=== PATIENT | female | born 1970 | race Caucasian/White ===

== ENCOUNTER 2018-06-06 17:32 | Emergency (ER) | payer BC ==
--- NOTE | 2018-06-06 17:56 | EDM.PDOC ---
ED HPI GENERAL MEDICAL PROBLEM - General Chief Complaint: Abdominal Pain Stated Complaint: ABDONMENAL PAIN Time Seen by Provider: 06/06/18 18:15 Source of Information: Reports: Patient History Limitations: Reports: No Limitations - History of Present Illness INITIAL COMMENTS - FREE TEXT/NARRATIVE: History of present illness: []Patient developed severe right flank pain looking at [employer] today. He decided to leave work and drink 2 glasses of water and her pain subsided. Pain has not returned. Patient states that is when she urinates. Denies any fevers, chills, nausea, vomiting or diarrhea. Review of systems: As per history of present illness and below otherwise all systems reviewed and negative. Past medical history: As per history of present illness and as reviewed below otherwise noncontributory. Surgical history: As per history of present illness and as reviewed below otherwise noncontributory. Social history: No reported history of drug or alcohol abuse. Family history: As per history of present illness and as reviewed below otherwise noncontributory. Physical exam: General: Well developed, well nourished in NAD HEENT: Atraumatic, normocephalic, pupils reactive, negative for conjunctival pallor or scleral icterus, mucous membranes moist, throat clear, neck supple, nontender, trachea midline. Lungs: Clear to auscultation, breath sounds equal bilaterally, chest nontender. Heart: S1S2, regular, negative for clicks, rubs, or JVD. Abdomen: NABS, Soft, nondistended, nontender. Negative for masses or hepatosplenomegaly. Positive right costovertebral tenderness. Pelvis: Stable nontender. Genitourinary: Deferred. Rectal: Deferred. Extremities: Atraumatic, negative for cords or calf pain. Neurovascular unremarkable. Neuro: Awake, alert, oriented. Cranial nerves II through XII unremarkable. Cerebellum unremarkable. Motor and sensory unremarkable throughout. Exam nonfocal. Skin:warm and dry Diagnostics: CBC-normal, chemistry normal BUN and creatinine, UA, hCG, lipase Therapeutics: Declined pain meds, patient has blood in her urine suggestive of a stone given her symptoms she declined CT scan and with a normal BUN/creatinine and alleviation of pain, she will follow-up with primary care and our urology ED Course: Stable Impression: Renal colic, kidney stone Prescriptions: Flomax, tramadol Plan: Increase fluids, go home Definitive disposition and diagnosis as appropriate pending reevaluation and review of above. Right Back Pain Score (Numeric/FACES): 4 - Related Data Allergies Allergy/AdvReac Type Severity Reaction Status Date / Time No Known Allergies Allergy Verified 06/06/18 17:54 Home Meds: Home Meds Tamsulosin HCl [Flomax] 0.4 mg PO DAILY #14 cap.er.24h 06/06/18 [Rx] traMADol HCl [Tramadol HCl] 50 mg PO Q6H PRN #16 tablet 06/06/18 [Rx] ED ROS GENERAL - Review of Systems Review Of Systems: ROS reveals no pertinent complaints other than HPI. ED EXAM, GI/ABD - Physical Exam Exam: See Below (The history of present illness) Course - Vital Signs Last Recorded V/S: Last Vital Signs Temp 97.1 F 06/06/18 17:52 Pulse 85 06/06/18 17:52 Resp BP 115/79 06/06/18 17:52 Pulse Ox 99 06/06/18 17:52 - Orders/Labs/Meds Labs: Laboratory Tests 06/06/18 06/06/18 06/06/18 Range/Units 17:57 18:09 18:09 WBC 8.70 (4.0-11.0) K/uL RBC 4.55 (4.30-5.90) M/uL Hgb 13.5 (12.0-16.0) g/dL Hct 40.6 (36.0-46.0) % MCV 89.2 (80.0-98.0) fL MCH 29.7 (27.0-32.0) pg MCHC 33.3 (31.0-37.0) g/dL RDW Std Deviation 43.9 (28.0-62.0) fl RDW Coeff of Kyle 14 (11.0-15.0) % Plt Count 247 (150-400) K/uL MPV 10.30 (7.40-12.00) fL Neut % (Auto) 63.8 (48.0-80.0) % Lymph % (Auto) 27.8 (16.0-40.0) % [place] % (Auto) 6.7 (0.0-15.0) % Eos % (Auto) 1.4 (0.0-7.0) % Baso % (Auto) 0.3 (0.0-1.5) % Neut # (Auto) 5.6 (1.4-5.7) K/uL Lymph # (Auto) 2.4 (0.6-2.4) K/uL [place] # (Auto) 0.6 (0.0-0.8) K/uL Eos # (Auto) 0.1 (0.0-0.7) K/uL Baso # (Auto) 0.0 (0.0-0.1) K/uL Nucleated RBC % 0.0 /100WBC Nucleated RBCs # 0 K/uL Sodium 141 (136-145) mmol/L Potassium 4.1 (3.5-5.1) mmol/L Chloride 107 (98-107) mmol/L Carbon Dioxide 26.5 (21.0-32.0) mmol/L BUN 17 (7.0-18.0) mg/dL Creatinine 0.6 (0.6-1.0) mg/dL Est Cr Clr Drug Dosing 94.85 mL/min Estimated GFR (MDRD) > 60.0 ml/min Glucose 103 (74-106) mg/dL Calcium 8.8 (8.5-10.1) mg/dL Total Bilirubin 0.2 (0.2-1.0) mg/dL AST 16 (15-37) IU/L ALT 31 (14-63) IU/L Alkaline Phosphatase 75 (46-116) U/L Total Protein 7.0 (6.4-8.2) g/dL Albumin 3.7 (3.4-5.0) g/dL Globulin 3.3 (2.6-4.0) g/dL Albumin/Globulin Ratio 1.1 (0.9-1.6) Lipase 104 (73-393) U/L HCG, Quant < 1.0 mIU/mL Urine Color YELLOW Urine Appearance CLEAR Urine pH 5.5 (5.0-8.0) Ur Specific [place] >= 1.030 (1.001-1.035) Urine Protein NEGATIVE (NEGATIVE) mg/dL Urine Glucose (UA) NEGATIVE (NEGATIVE) mg/dL Urine Ketones NEGATIVE (NEGATIVE) mg/dL Urine Occult Blood LARGE H (NEGATIVE) Urine Nitrite NEGATIVE (NEGATIVE) Urine Bilirubin NEGATIVE (NEGATIVE) Urine Urobilinogen 0.2 (<2.0) EU/dL Ur Leukocyte Esterase NEGATIVE (NEGATIVE) Urine RBC 30-35 (0-2/HPF) Urine WBC 0-2 (0-5/HPF) Ur Epithelial Cells MODERATE (NONE-FEW) Other Crystals FEW Urine Mucus MODERATE (NONE-MOD) Departure - Departure Time of Disposition: 19:27 Disposition: Home, Self-Care 01 Condition: Good Clinical Impression: Renal colic on right side - Discharge Information *PRESCRIPTION DRUG MONITORING PROGRAM REVIEWED*: No *COPY OF PRESCRIPTION DRUG MONITORING REPORT IN PATIENT CHRISTIE: No () Referrals: PCP,None [Primary Care Provider] - Forms: ED Department Discharge Additional Instructions: The following information is given to patients seen in the emergency department who are being discharged to home. This information is to outline your options for follow-up care. We provide all patients seen in our emergency department with a follow-up referral. The need for follow-up, as well as the timing and circumstances, are variable depending upon the specifics of your emergency department visit. If you don't have a primary care physician on staff, we will provide you with a referral. We always advise you to contact your personal physician following an emergency department visit to inform them of the circumstance of the visit and for follow-up with them and/or the need for any referrals to a consulting specialist. The emergency department will also refer you to a specialist when appropriate. This referral assures that you have the opportunity for follow-up care with a specialist. All of these measure are taken in an effort to provide you with optimal care, which includes your follow-up. Under all circumstances we always encourage you to contact your private physician who remains a resource for coordinating your care. When calling for follow-up care, please make the office aware that this follow-up is from your recent emergency room visit. If for any reason you are refused follow-up, please contact the [facility] Emergency Department at and asked to speak to the emergency department charge nurse. Take meds as directed, follow up with your primary care physician, return to ER if symptoms worsen or change. [facility] [address] [place] [id number]
[2018-06-06 18:50] LABS: CHLORIDE,CL 107 mmol/L (98-107); SODIUM,NA 141 mmol/L (136-145)
[2018-06-06] MEDS ORDERED: Tamsulosin 0.4 MG Cap.ER PO ONE (19:27)
== END 2018-06-06 19:50 | disposition home or self-care (01) ==
LOC: MW.ED 17:32
DX: N20.0 Calculus of kidney (principal)
CPT/HCPCS: 36415; 80053; 81001; 83690; 84702; 85025; 99284; A9270

== ENCOUNTER 2019-01-14 13:59 | Emergency (ER) | payer BC, OTHER ==
[2019-01-14] MEDS ORDERED: Ondansetron 4 MG/2 ML SDV IVPUSH ONE (14:03)
[2019-01-14] MEDS ORDERED: Sodium Chloride 0.9% 1,000 ML IV ONE ×2 (14:03→16:16)
--- NOTE | 2019-01-14 14:03 | EDM.PDOC ---
ED HPI GENERAL MEDICAL PROBLEM - General Chief Complaint: Abdominal Pain Stated Complaint: RIGHT ABD PAIN Time Seen by Provider: 01/14/19 14:02 Source of Information: Reports: Patient History Limitations: Reports: No Limitations - History of Present Illness INITIAL COMMENTS - FREE TEXT/NARRATIVE: HISTORY AND PHYSICAL: History of present illness: Patient is a 48-year-old female who presents to the emergency room today with complaints of right lower quadrant pain which started last evening but this progressively gotten worse. She states she has previously had a kidney stone this last summer, does not recall which side, but states she passed this on her own. She believes the pain is not similar to what she is experiencing now. Nothing is making the pain better or worse. Patient denies any fever, chills, headache, change in vision, syncope or near syncope. Denies any chest pain, back pain, shortness of breath or cough. Denies any nausea, vomiting, diarrhea, constipation or dysuria. Has not noted any blood in urine or stool. Patient has been eating and drinking appropriately. Review of systems: As per history of present illness and below otherwise all systems reviewed and negative. Past medical history: As per history of present illness and as reviewed below otherwise noncontributory. Surgical history: As per history of present illness and as reviewed below otherwise noncontributory. Social history: See social history for further information Family history: As per history of present illness and as reviewed below otherwise noncontributory. Physical exam: General: Well-developed and well-nourished 48-year-old female. Alert and oriented. Nontoxic appearing and in no acute distress. HEENT: Atraumatic, normocephalic, pupils equal and reactive bilaterally, negative for conjunctival pallor or scleral icterus, mucous membranes moist, trachea midline. No drooling or trismus noted. No meningeal signs. No hot potato voice noted. Lungs: Clear to auscultation, breath sounds equal bilaterally, chest nontender. Heart: S1S2, regular rate and rhythm without overt murmur Abdomen: Soft, nondistended, RLQ pain without rebound tenderness. Negative for masses or hepatosplenomegaly. Negative for costovertebral tenderness. Pelvis: Stable nontender. Skin: Intact, warm, dry. No lesions or rashes noted. Extremities: Atraumatic, moves all extremities per self without difficulty or deficits, negative for cords or calf pain. Neurovascular unremarkable. Neuro: Awake, alert, oriented. Cranial nerves II through XII unremarkable. Cerebellum unremarkable. Motor and sensory unremarkable throughout. Exam nonfocal. Notes: Lab work is unremarkable. Patient has not yet been able to void. Appendix is not clearly seen however there is no inflammatory changes noted. Right hydronephrosis and right hydroureter with 5 mm proximal right ureteral calculi. Dr Parikh was directly involved with this patient care. Patient was informed of diagnostics. I currently do not have urology available. Initially I spoke with Dr. Atkins, at [facility], who is agreeable to a Consulting this patient if his urologist. Dr. Perez, urologist, was consulted and agreeable to accepting this patient. Patient is requesting to go by private vehicle, stating she does not want to afford the ambulance services. She is nontoxic in appearance, we discussed the risks versus benefits of transfer by ambulance service. She is aware of these risks and is accepting these risks. Diagnostics: CBC, CMP, UA, Lipase, CT abd/pelvis Therapeutics: IV fluids, morphine, zofran, toradol, flomax, rocephin Impression: Infected right renal caliculi Plan: 1. Increase your oral fluids. Take medications as prescribed. 2. Tylenol and/or ibuprofen as needed. [place] for moderate to severe pain. Do not take while driving or needing to be functioning outside the house. 3. Follow up with Dr Salazar as we discussed. Return to the ED as needed and as discussed. Definitive disposition and diagnosis as appropriate pending reevaluation and review of above. right lower back Pain Score (Numeric/FACES): 10 - Related Data Allergies Allergy/AdvReac Type Severity Reaction Status Date / Time No Known Allergies Allergy Verified 06/06/18 17:54 Home Meds: Home Meds . 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 ED EXAM, GI/ABD - Physical Exam Exam: See Below (See dictation) Course - Vital Signs Last Recorded V/S: Last Vital Signs Temp 96.5 F 01/14/19 14:35 Pulse 85 01/14/19 14:35 Resp 24 H 01/14/19 14:35 BP 128/87 01/14/19 14:35 Pulse Ox 100 01/14/19 14:35 - Orders/Labs/Meds Orders: Active Orders 24 hr Category Date Time Status cefTRIAXone [Rocephin in Dextrose,Iso-Osm 1 GM/50 ML] 1 Med 01/14/19 17:38 Active gm Premix Bag 1 bag IV ONETIME Medication Orders Ceftriaxone Sodium/Dextrose 1 (gm/ Premix) 50 mls @ 100 mls/hr IV ONETIME ONE Stop: 01/14/19 18:07 Labs: Laboratory Tests 01/14/19 01/14/19 01/14/19 Range/Units 14:40 14:40 17:03 WBC 9.94 (4.0-11.0) K/uL RBC 4.56 (4.30-5.90) M/uL Hgb 13.7 (12.0-16.0) g/dL Hct 40.0 (36.0-46.0) % MCV 87.7 (80.0-98.0) fL MCH 30.0 (27.0-32.0) pg MCHC 34.3 (31.0-37.0) g/dL RDW Std Deviation 42.1 (28.0-62.0) fl RDW Coeff of Kyle 13 (11.0-15.0) % Plt Count 267 (150-400) K/uL MPV 10.30 (7.40-12.00) fL Neut % (Auto) 50.8 (48.0-80.0) % Lymph % (Auto) 39.3 (16.0-40.0) % [place] % (Auto) 7.5 (0.0-15.0) % Eos % (Auto) 2.1 (0.0-7.0) % Baso % (Auto) 0.3 (0.0-1.5) % Neut # (Auto) 5.0 (1.4-5.7) K/uL Lymph # (Auto) 3.9 H (0.6-2.4) K/uL [place] # (Auto) 0.8 (0.0-0.8) K/uL Eos # (Auto) 0.2 (0.0-0.7) K/uL Baso # (Auto) 0.0 (0.0-0.1) K/uL Nucleated RBC % 0.0 /100WBC Nucleated RBCs # 0 K/uL Sodium 139 (136-145) mmol/L Potassium 3.7 (3.5-5.1) mmol/L Chloride 105 (98-107) mmol/L Carbon Dioxide 25.1 (21.0-32.0) mmol/L BUN 15 (7.0-18.0) mg/dL Creatinine 0.7 (0.6-1.0) mg/dL Est Cr Clr Drug Dosing TNP Estimated GFR (MDRD) > 60.0 ml/min Glucose 114 H (74-106) mg/dL Calcium 9.2 (8.5-10.1) mg/dL Total Bilirubin 0.3 (0.2-1.0) mg/dL AST 22 (15-37) IU/L ALT 35 (14-63) IU/L Alkaline Phosphatase 79 (46-116) U/L Total Protein 7.3 (6.4-8.2) g/dL Albumin 3.9 (3.4-5.0) g/dL Globulin 3.4 (2.6-4.0) g/dL Albumin/Globulin Ratio 1.1 (0.9-1.6) Urine Color BROWN Urine Appearance CLOUDY Urine pH 7.0 (5.0-8.0) Ur Specific [place] 1.020 (1.001-1.035) Urine Protein 100 H (NEGATIVE) mg/dL Urine Glucose (UA) NEGATIVE (NEGATIVE) mg/dL Urine Ketones TRACE H (NEGATIVE) mg/dL Urine Occult Blood LARGE H (NEGATIVE) Urine Nitrite NEGATIVE (NEGATIVE) Urine Bilirubin MODERATE H (NEGATIVE) Urine Urobilinogen 1.0 (<2.0) EU/dL Ur Leukocyte Esterase NEGATIVE (NEGATIVE) Urine RBC TOO NUMEROUS TO CT H (0-2/HPF) Urine WBC 3-5 (0-5/HPF) Ur Epithelial Cells FEW (NONE-FEW) Urine Bacteria 1+ H (NEGATIVE) Urine Mucus LIGHT (NONE-MOD) Meds: Medications Generic Name Dose Route Start Last Admin Trade Name Freq PRN Reason Stop Dose Admin Ceftriaxone Sodium/Dextrose 1 50 mls @ 100 mls/hr 01/14/19 17:38 gm/ Premix IV 01/14/19 18:07 ONETIME ONE Discontinued Medications Generic Name Dose Route Start Last Admin Trade Name Aris PRN Reason Stop Dose Admin Sodium Chloride 1,000 mls @ 999 mls/hr 01/14/19 14:03 01/14/19 14:45 Normal Saline IV 01/14/19 15:03 999 mls/hr STAT ONE Administration Sodium Chloride 1,000 mls @ 999 mls/hr 01/14/19 16:16 Normal Saline IV 01/14/19 17:16 STAT ONE Iopamidol 80 ml 01/14/19 15:49 01/14/19 15:50 Isovue Multipack-370 (76%) IVPUSH 01/14/19 15:50 80 ml ONETIME STA Administration Ketorolac Tromethamine 30 mg 01/14/19 15:53 01/14/19 15:58 Toradol IVPUSH 01/14/19 15:54 30 mg ONETIME ONE Administration Morphine Sulfate 4 mg 01/14/19 14:19 01/14/19 14:45 Morphine IVPUSH 01/14/19 14:20 4 mg ONETIME ONE Administration Ondansetron HCl 4 mg 01/14/19 14:03 01/14/19 14:45 Zofran IVPUSH 01/14/19 14:04 4 mg ONETIME ONE Administration Tamsulosin HCl 0.4 mg 01/14/19 17:38 Flomax PO 01/14/19 17:39 ONETIME ONE Departure - Departure Time of Disposition: 17:44 Disposition: DC/Tfer to [facility] 02 Clinical Impression: Renal calculus, right - Discharge Information Instructions: Kidney Stones, [id number] Referrals: PCP,None [Primary Care Provider] - Forms: ED Department Discharge Additional Instructions: The following information is given to patients seen in the emergency department who are being discharged to home. This information is to outline your options for follow-up care. We provide all patients seen in our emergency department with a follow-up referral. The need for follow-up, as well as the timing and circumstances, are variable depending upon the specifics of your emergency department visit. If you don't have a primary care physician on staff, we will provide you with a referral. We always advise you to contact your personal physician following an emergency department visit to inform them of the circumstance of the visit and for follow-up with them and/or the need for any referrals to a consulting specialist. The emergency department will also refer you to a specialist when appropriate. This referral assures that you have the opportunity for follow-up care with a specialist. All of these measure are taken in an effort to provide you with optimal care, which includes your follow-up. Under all circumstances we always encourage you to contact your private physician who remains a resource for coordinating your care. When calling for follow-up care, please make the office aware that this follow-up is from your recent emergency room visit. If for any reason you are refused follow-up, please contact the [facility] Emergency Department at and asked to speak to the emergency department charge nurse. [address] [facility] [address] 1. GO directly to [facility] in [place] 2. Do not eat or drink anything until you see the Urologist 3. Return to the ED as needed and as discussed. - My Orders Last 24 Hours: My Active Orders 01/14/19 17:38 cefTRIAXone [Rocephin in Dextrose,Iso-Osm 1 GM/50 ML] 1 gm Premix Bag 1 bag IV ONETIME - Assessment/Plan Last 24 Hours: My Active Orders 01/14/19 17:38 cefTRIAXone [Rocephin in Dextrose,Iso-Osm 1 GM/50 ML] 1 gm Premix Bag 1 bag IV ONETIME
[2019-01-14] MEDS ORDERED: Morphine 4 MG/ML Syringe IVPUSH ONE (14:19)
[2019-01-14 15:16] LABS: BLOOD UREA NITROGEN,BUN 15 mg/dL (7.0-18.0); CARBON DIOXIDE,CO2 25.1 mmol/L (21.0-32.0); CHLORIDE,CL 105 mmol/L (98-107); GLUCOSE RANDOM 114 mg/dL (74-106); POTASSIUM,K 3.7 mmol/L (3.5-5.1); SODIUM,NA 139 mmol/L (136-145)
[2019-01-14] MEDS ORDERED: Iopamidol 755 MG/ML 500 ML Multipack Bottle IVPUSH STA (15:49)
[2019-01-14] MEDS ORDERED: Ketorolac 30 MG/ML SDV IVPUSH ONE (15:53)
--- NOTE | 2019-01-14 16:05 | CT ---
Indication: Right lower quadrant pain. Technique: Multiple contiguous axial images were obtained from the lung bases through the symphysis pubis after the intravenous administration 80 milliliters Isovue 370. Please note that all CT scans at this facility use dose modulation, iterative reconstruction, and/or weight-based dosing when appropriate to reduce radiation dose to as low as reasonably achievable. Comparison: None Findings: Lung bases are clear. The heart is normal in size. The liver, gallbladder, spleen, pancreas, adrenals, and left kidney are grossly normal. Bilateral nonobstructing renal calculi are identified. Right hydronephrosis and right hydroureter identified. A proximal 5 millimeter right ureteral calculus is identified. This is best seen on image 66, series 201. In the pelvis, the urinary bladder is normal. The uterus is grossly normal. The small and large bowel are normal in caliber. Moderate amount of stool is identified within the colon. The appendix is not clearly seen. However, no inflammatory changes are identified in the right lower quadrant. No free air is identified. The aorta is normal in caliber. Impression: The appendix is not clearly seen however, no definite inflammatory changes are identified in the right lower quadrant. Right hydronephrosis and right hydroureter with a 5 millimeter proximal right ureteral calculus. Please note that all CT scans at this facility use dose modulation, iterative reconstruction, and/or weight-based dosing when appropriate to reduce radiation dose to as low as reasonably achievable. Dictated by Eboni Mejia MD @ Jan 14 2019 3:56PM Signed by Dr. Eboni Mejia @ Jan 14 2019 4:03PM
[2019-01-14] MEDS ORDERED: cefTRIAXone 1 GM in Premix Bag 1 BAG IV ONE (17:38)
[2019-01-14] MEDS ORDERED: Tamsulosin 0.4 MG Cap.ER PO ONE (17:38)
[2019-01-14] MEDS ORDERED: Morphine 2 MG/ML Syringe IVPUSH ONE (17:46)
== END 2019-01-14 18:47 ==
LOC: MW.ED 13:59
DX: N13.6 Pyonephrosis (principal)
CPT/HCPCS: 36415; 74177; 80053; 81001; 85025; 96361; 96365; 96375; 96376; 99285; A9270; J0696; J1885; J2270; J2405; J7040; Q9967; 99284; J7030

== ENCOUNTER 2019-03-25 16:19 | Emergency (ER) | payer SELFPAY | END 2019-03-25 16:50 | disposition left against medical advice (07) | LOC: MW.ED 16:19 | DX: Z53.21 Procedure and treatment not carried out due to patient leaving prior to being seen by health care provider (principal) ==

== ENCOUNTER 2019-10-19 11:57 | Emergency (ER) | payer BC ==
[2019-10-19] MEDS ORDERED: Sodium Chloride 0.9% 1,000 ML IV ONE (12:44)
[2019-10-19] MEDS ORDERED: Ondansetron 4 MG/2 ML SDV IVPUSH ONE (12:57)
[2019-10-19] MEDS ORDERED: Ketorolac 30 MG/ML SDV IVPUSH ONE (12:57)
[2019-10-19] MEDS ORDERED: cefTRIAXone 1 GM in Premix Bag 1 BAG IV ONE (13:04)
--- NOTE | 2019-10-19 13:16 | EDM.PDOC ---
ED HPI GENERAL MEDICAL PROBLEM - General Chief Complaint: Genitourinary Problem Stated Complaint: PAIN RT SIDE OF HEAD / PAIN AROUND KIDNEY AREA Time Seen by Provider: 10/19/19 12:15 Source of Information: Reports: Patient History Limitations: Reports: No Limitations - History of Present Illness INITIAL COMMENTS - FREE TEXT/NARRATIVE: HISTORY AND PHYSICAL: History of present illness: Patient is a 48-year-old female who presents to the ED today with concern of left-sided flank pain, fever, burning with urination, urinary frequency over the past 2 to 3 days. Patient states that she does have a history of a kidney stone and this feels similar to her kidney stone but also similar to a urinary tract infection. Patient states that she also has a headache and believes this is related to her having a fever. Patient denies any trauma or injury. Patient states she has not taken anything for her symptoms. Patient denies any other symptoms or concerns. Patient denies chest pain, shortness of breath, or cough. Denies neck stiff ness, change in vision, syncope, or near syncope. Denies nausea, vomiting, abdominal pain, diarrhea, constipation. Has not noted any blood in urine or stool. Patient has been eating and drinking appropriately. Review of systems: As per history of present illness and below otherwise all systems reviewed and negative. Past medical history: As per history of present illness and as reviewed below otherwise noncontributory. Surgical history: As per history of present illness and as reviewed below otherwise noncontributory. Social history: See social history for further information Family history: As per history of present illness and as reviewed below otherwise noncontributory. Physical exam: General: Patient is alert, oriented, and in no acute distress. Patient sitting comfortably on exam table. HEENT: Atraumatic, normocephalic, pupils equal and reactive bilaterally, negative for conjunctival pallor or scleral icterus, mucous membranes moist, TMs normal bilaterally, throat clear, neck supple, nontender, trachea midline. No drooling or trismus noted. No meningeal signs. No hot potato voice noted. Lungs: Clear to auscultation, breath sounds equal bilaterally, chest nontender. Heart: S1S2, regular rate and rhythm without overt murmur Abdomen: Soft, nondistended, nontender. Negative for masses or hepatosplenomegaly. Positive for costovertebral tenderness of the left. Pelvis: Stable nontender. Genitourinary: Deferred. Rectal: Deferred. Skin: Intact, warm, dry. No lesions or rashes noted. Extremities: Atraumatic, negative for cords or calf pain. Neurovascular unremarkable. Neuro: Awake, alert, oriented. Cranial nerves II through XII unremarkable. Cerebellum unremarkable. Motor and sensory unremarkable throughout. Exam nonfocal. Notes: I did call and speak to the urologist, Dr. Enamorado, who states that patient does need a stent placement. However, due to diversion, there are no OR capabilities at this time so patient as to be transferred. I did call and speak to Dr. Castellano, urology at [facility] in [place], and accepting of transfer. Patient requests transfer via private vehicle and declines EMS transfer. All risks vs benefits discussed with patient and expresses understanding. Voices understanding and is agreeable to plan of care. Denies any further questions or concerns at this time. Diagnostics: CBC, CMP, UA w culture, Uhcg, Lactate, Blood cultures x 2, Abd/Pelvic w/o cont Therapeutics: NS, Toradol, Zofran, Rocephin Impression: Pyelonephritis Ureterolithiasis Plan: Transfer to [facility] to Dr. Castellano/Dr Humphreys via private vehicle. Definitive disposition and diagnosis as appropriate pending reevaluation and review of above. Flank Pain Score (Numeric/FACES): 8 - Related Data Allergies Allergy/AdvReac Type Severity Reaction Status Date / Time No Known Allergies Allergy Verified 10/19/19 12:33 Home Meds: Home Meds . 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 ED EXAM, GENERAL - Physical Exam Exam: See Below (see dictation) Course - Vital Signs Last Recorded V/S: Last Vital Signs Temp 100.2 F 10/19/19 12:33 Pulse 94 10/19/19 14:08 Resp 17 10/19/19 14:08 BP 108/59 L 10/19/19 14:08 Pulse Ox 97 10/19/19 14:08 - Orders/Labs/Meds Orders: Active Orders 24 hr Category Date Time Status CULTURE BLOOD [BC] Stat Lab 10/19/19 13:08 Received CULTURE BLOOD [BC] Stat Lab 10/19/19 13:10 Received CULTURE URINE [RM] Stat Lab 10/19/19 12:30 Received Blood Culture x2 Reflex Set [OM.PC] Stat Oth 10/19/19 12:59 Ordered Labs: Laboratory Tests 10/19/19 10/19/19 10/19/19 Range/Units 12:30 12:30 13:08 WBC 15.33 H (4.0-11.0) K/uL RBC 4.07 L (4.30-5.90) M/uL Hgb 12.2 (12.0-16.0) g/dL Hct 36.4 (36.0-46.0) % MCV 89.4 (80.0-98.0) fL MCH 30.0 (27.0-32.0) pg MCHC 33.5 (31.0-37.0) g/dL RDW Std Deviation 42.9 (28.0-62.0) fl RDW Coeff of Kyle 13 (11.0-15.0) % Plt Count 231 (150-400) K/uL MPV 10.20 (7.40-12.00) fL Neut % (Auto) 83.1 H (48.0-80.0) % Lymph % (Auto) 6.0 L (16.0-40.0) % [place] % (Auto) 9.9 (0.0-15.0) % Eos % (Auto) 0.7 (0.0-7.0) % Baso % (Auto) 0.3 (0.0-1.5) % Neut # (Auto) 12.7 H (1.4-5.7) K/uL Lymph # (Auto) 0.9 (0.6-2.4) K/uL [place] # (Auto) 1.5 H (0.0-0.8) K/uL Eos # (Auto) 0.1 (0.0-0.7) K/uL Baso # (Auto) 0.1 (0.0-0.1) K/uL Nucleated RBC % 0.0 /100WBC Nucleated RBCs # 0 K/uL Lactate (0.20-2.00) mmol/L Sodium (136-145) mmol/L Potassium (3.5-5.1) mmol/L Chloride (98-107) mmol/L Carbon Dioxide (21.0-32.0) mmol/L BUN (7.0-18.0) mg/dL Creatinine (0.6-1.0) mg/dL Est Cr Clr Drug Dosing mL/min Estimated GFR (MDRD) ml/min Glucose (74-106) mg/dL Calcium (8.5-10.1) mg/dL Total Bilirubin (0.2-1.0) mg/dL AST (15-37) IU/L ALT (14-63) IU/L Alkaline Phosphatase (46-116) U/L Total Protein (6.4-8.2) g/dL Albumin (3.4-5.0) g/dL Globulin (2.6-4.0) g/dL Albumin/Globulin Ratio (0.9-1.6) Lipase (73-393) U/L Urine Color YELLOW Urine Appearance SLT CLOUDY Urine pH 5.5 (5.0-8.0) Ur Specific [place] 1.025 (1.001-1.035) Urine Protein 100 H (NEGATIVE) mg/dL Urine Glucose (UA) NEGATIVE (NEGATIVE) mg/dL Urine Ketones NEGATIVE (NEGATIVE) mg/dL Urine Occult Blood MODERATE H (NEGATIVE) Urine Nitrite NEGATIVE (NEGATIVE) Urine Bilirubin NEGATIVE (NEGATIVE) Urine Urobilinogen 0.2 (<2.0) EU/dL Ur Leukocyte Esterase SMALL H (NEGATIVE) Urine RBC 0-2 (0-2/HPF) Urine WBC 100-120 (0-5/HPF) Ur Epithelial Cells RARE (NONE-FEW) Urine Bacteria 1+ H (NEGATIVE) Urine HCG, Qual NEGATIVE (NEGATIVE) 10/19/19 10/19/19 Range/Units 13:08 13:08 WBC (4.0-11.0) K/uL RBC (4.30-5.90) M/uL Hgb (12.0-16.0) g/dL Hct (36.0-46.0) % MCV (80.0-98.0) fL MCH (27.0-32.0) pg MCHC (31.0-37.0) g/dL RDW Std Deviation (28.0-62.0) fl RDW Coeff of Kyle (11.0-15.0) % Plt Count (150-400) K/uL MPV (7.40-12.00) fL Neut % (Auto) (48.0-80.0) % Lymph % (Auto) (16.0-40.0) % [place] % (Auto) (0.0-15.0) % Eos % (Auto) (0.0-7.0) % Baso % (Auto) (0.0-1.5) % Neut # (Auto) (1.4-5.7) K/uL Lymph # (Auto) (0.6-2.4) K/uL [place] # (Auto) (0.0-0.8) K/uL Eos # (Auto) (0.0-0.7) K/uL Baso # (Auto) (0.0-0.1) K/uL Nucleated RBC % /100WBC Nucleated RBCs # K/uL Lactate 1.3 (0.20-2.00) mmol/L Sodium 138 (136-145) mmol/L Potassium 4.0 (3.5-5.1) mmol/L Chloride 103 (98-107) mmol/L Carbon Dioxide 26.6 (21.0-32.0) mmol/L BUN 14 (7.0-18.0) mg/dL Creatinine 0.7 (0.6-1.0) mg/dL Est Cr Clr Drug Dosing 83.95 mL/min Estimated GFR (MDRD) > 60.0 ml/min Glucose 130 H (74-106) mg/dL Calcium 8.8 (8.5-10.1) mg/dL Total Bilirubin 0.2 (0.2-1.0) mg/dL AST 14 L (15-37) IU/L ALT 24 (14-63) IU/L Alkaline Phosphatase 82 (46-116) U/L Total Protein 5.9 L (6.4-8.2) g/dL Albumin 3.2 L (3.4-5.0) g/dL Globulin 2.7 (2.6-4.0) g/dL Albumin/Globulin Ratio 1.2 (0.9-1.6) Lipase 99 (73-393) U/L Urine Color Urine Appearance Urine pH (5.0-8.0) Ur Specific [place] (1.001-1.035) Urine Protein (NEGATIVE) mg/dL Urine Glucose (UA) (NEGATIVE) mg/dL Urine Ketones (NEGATIVE) mg/dL Urine Occult Blood (NEGATIVE) Urine Nitrite (NEGATIVE) Urine Bilirubin (NEGATIVE) Urine Urobilinogen (<2.0) EU/dL Ur Leukocyte Esterase (NEGATIVE) Urine RBC (0-2/HPF) Urine WBC (0-5/HPF) Ur Epithelial Cells (NONE-FEW) Urine Bacteria (NEGATIVE) Urine HCG, Qual (NEGATIVE) Meds: Medications Discontinued Medications Generic Name Dose Route Start Last Admin Trade Name Freq PRN Reason Stop Dose Admin Sodium Chloride 1,000 mls @ 999 mls/hr 10/19/19 12:44 10/19/19 13:15 Normal Saline IV 10/19/19 13:44 999 mls/hr BOLUS ONE Administration Ceftriaxone Sodium/Dextrose 1 50 mls @ 100 mls/hr 10/19/19 13:04 10/19/19 13:15 gm/ Premix IV 10/19/19 13:33 100 mls/hr ONETIME ONE Administration Ketorolac Tromethamine 30 mg 10/19/19 12:57 10/19/19 13:12 Toradol IVPUSH 10/19/19 12:58 30 mg ONETIME ONE Administration Ondansetron HCl 4 mg 10/19/19 12:57 10/19/19 13:11 Zofran IVPUSH 10/19/19 12:58 4 mg ONETIME ONE Administration Departure - Departure Time of Disposition: 15:41 Disposition: DC/Tfer to Acute Hospital 02 Clinical Impression: Pyelonephritis, Ureterolithiasis - Discharge Information Referrals: PCP,None [Primary Care Provider] - Forms: ED Department Discharge Sepsis Event Note (ED) - Evaluation Sepsis Screening Result: Possible Sepsis Risk - Focused Exam Vital Signs: Vital Signs Temp Pulse Resp BP Pulse Ox 10/19/19 14:08 94 17 108/59 L 97 10/19/19 12:33 100.2 F 97 18 107/52 L 96 - My Orders Last 24 Hours: My Active Orders 10/19/19 12:30 CULTURE URINE [RM] Stat 10/19/19 12:59 Blood Culture x2 Reflex Set [OM.PC] Stat 10/19/19 13:08 CULTURE BLOOD [BC] Stat 10/19/19 13:10 CULTURE BLOOD [BC] Stat - Assessment/Plan Last 24 Hours: My Active Orders 10/19/19 12:30 CULTURE URINE [RM] Stat 10/19/19 12:59 Blood Culture x2 Reflex Set [OM.PC] Stat 10/19/19 13:08 CULTURE BLOOD [BC] Stat 10/19/19 13:10 CULTURE BLOOD [BC] Stat
[2019-10-19 14:00] LABS: BLOOD UREA NITROGEN,BUN 14 mg/dL (7.0-18.0); CARBON DIOXIDE,CO2 26.6 mmol/L (21.0-32.0); CHLORIDE,CL 103 mmol/L (98-107); GLUCOSE RANDOM 130 mg/dL (74-106); LIPASE 99 U/L (73-393); SODIUM,NA 138 mmol/L (136-145)
--- NOTE | 2019-10-19 14:18 | CT ---
CT abdomen and pelvis Technique: Multiple axial sections were obtained from above the dome of the diaphragm inferiorly through the pubic symphysis. Intravenous and oral contrast not utilized. Study has been performed as a ureteral stone protocol. Findings: Dilated left ureter is seen. This finding is caused by an obstructing distal left ureteral stone measuring approximately 4.5 mm. This occurs slightly proximal to the UVJ. Small nonobstructing calculi are seen within both kidneys. No additional ureteral calculi are seen. Small cyst is noted within the inferior right kidney measuring about 2.2 cm. Other findings: Visualized lung bases show nothing acute. Noncontrast appearance of the liver shows no focal abnormality. Spleen appears within normal limits. Adrenal glands show no nodule. Pancreas shows no discrete abnormality. Aorta shows no aneurysm with atherosclerotic calcification. No retroperitoneal adenopathy or mesenteric abnormalities are seen. No pelvic mass or adenopathy is seen. No free fluid or inflammatory change is appreciated. Appendix not visualized with certainty. Bone window settings were reviewed which shows no acute osseous finding. Impression: 1. Dilated left ureter caused by a 4.5 mm obstructing stone within the distal left ureter located slightly proximal to the UVJ. 2. Multiple small nonobstructing calculi within both kidneys. 3. No other acute abnormality is appreciated. Diagnostic code #3 This report was dictated in MDT
== END 2019-10-19 16:04 ==
LOC: MW.ED 11:57
DX: N12 Tubulo-interstitial nephritis, not specified as acute or chronic (principal); N20.2 Calculus of kidney with calculus of ureter; F17.210 Nicotine dependence, cigarettes, uncomplicated
CPT/HCPCS: 36415; 74176; 80053; 81001; 81025; 83605; 83690; 85025; 87040; 87086; 87088; 87186; J0696; J1885; J2405; J7030

== ENCOUNTER 2019-11-01 17:36 | Emergency (ER) | payer BC ==
--- NOTE | 2019-11-01 18:56 | EDM.PDOC ---
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 Patient states that she had received a stent in her left kidney after she had a kidney stone and a urinary tract infection. Patient states she has been following with the urologist and was told that the stone is too big to pass on its own and requires lithotripsy. Patient states that she has had the stent in since the and did not have any discomfort until last night. Patient states she is starting to have some discomfort where the stent is placed as well as noticed a large amount of blood in her urine. Patient states that she was waiting for the lithotripsy as the urologist was concerned about an infection of her bladder. Patient states she has an appointment next week with the urologist in [place]. Patient denies fever, chills, chest pain, shortness of breath, or cough. Denies headache, neck stiff ness, change in vision, syncope, or near syncope. Denies nausea, vomiting, diarrhea, constipation, or dysuria. Has not noted any blood in stool. Patient has been eating and drinking appropriately. Review of systems: As per history of present illness and below otherwise all systems reviewed and negative. Past medical history: As per history of present illness and as reviewed below otherwise noncontributory. Surgical history: As per history of present illness and as reviewed below otherwise noncontributory. Social history: See social history for further information Family history: As per history of present illness and as reviewed below otherwise noncontributory. Physical exam: General: Patient is alert, oriented, and in no acute distress. Patient sitting comfortably on exam table. HEENT: Atraumatic, normocephalic, pupils equal and reactive bilaterally, negative for conjunctival pallor or scleral icterus, mucous membranes moist, TMs normal bilaterally, throat clear, neck supple, nontender, trachea midline. No drooling or trismus noted. No meningeal signs. No hot potato voice noted. Lungs: Clear to auscultation, breath sounds equal bilaterally, chest nontender. Heart: S1S2, regular rate and rhythm without overt murmur Abdomen: Soft, nondistended, nontender. Negative for masses or hepatosplenomegaly. Negative for costovertebral tenderness. Pelvis: Stable nontender. Genitourinary: Deferred. Rectal: Deferred. Skin: Intact, warm, dry. No lesions or rashes noted. Extremities: Atraumatic, negative for cords or calf pain. Neurovascular unremarkable. Neuro: Awake, alert, oriented. Cranial nerves II through XII unremarkable. Cerebellum unremarkable. Motor and sensory unremarkable throughout. Exam nonfocal. Notes: I did call and personally speak to Dr. Castellano, urologist who performed patients stent, and thoroughly discussed patient's case. According to him, he would like us to send urine for culture as well as place patient on ciprofloxacin for an additional week. He encouraged that patient follow-up with him this week. He does state that this is consistent with stent placement and that blood in urine is expected and to have patient follow-up with him this week. Discussed the importance for follow-up with Dr. Castellano. Voices understanding and is agreeable to plan of care. Denies any further questions or concerns at this time. Diagnostics: CBC, CMP, UA, Lipase, Abd/Pelvic CT w/o cont, Serum hcg Therapeutics: None Prescription: Ciprofloxacin Impression: Urinary tract infection S/P urinary stent placement Plan: 1. Take medication as prescribed. You can alternate ibuprofen and Tylenol as directed for pain and discomfort. 2. Follow-up with Dr. Castellano as discussed. Return to the ED as needed and as discussed. Definitive disposition and diagnosis as appropriate pending reevaluation and review of above. 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 ED EXAM, GENERAL - Physical Exam Exam: See Below (see dictation) Course - Vital Signs Last Recorded V/S: Last Vital Signs Temp 96.4 F L 11/01/19 18:18 Pulse 100 11/01/19 18:18 Resp 18 11/01/19 18:18 BP 104/63 11/01/19 18:18 Pulse Ox 97 11/01/19 18:18 - Orders/Labs/Meds Orders: Active Orders 24 hr Category Date Time Status CULTURE URINE [RM] Stat Lab 11/01/19 17:45 Received Labs: Laboratory Tests 11/01/19 11/01/19 11/01/19 Range/Units 17:45 17:45 19:19 WBC 14.47 H (4.0-11.0) K/uL RBC 4.76 (4.30-5.90) M/uL Hgb 13.8 (12.0-16.0) g/dL Hct 42.3 (36.0-46.0) % MCV 88.9 (80.0-98.0) fL MCH 29.0 (27.0-32.0) pg MCHC 32.6 (31.0-37.0) g/dL RDW Std Deviation 43.5 (28.0-62.0) fl RDW Coeff of Kyle 13 (11.0-15.0) % Plt Count 337 (150-400) K/uL MPV 10.20 (7.40-12.00) fL Neut % (Auto) 73.3 (48.0-80.0) % Lymph % (Auto) 18.3 (16.0-40.0) % [place] % (Auto) 6.5 (0.0-15.0) % Eos % (Auto) 1.5 (0.0-7.0) % Baso % (Auto) 0.4 (0.0-1.5) % Neut # (Auto) 10.6 H (1.4-5.7) K/uL Lymph # (Auto) 2.7 H (0.6-2.4) K/uL [place] # (Auto) 0.9 H (0.0-0.8) K/uL Eos # (Auto) 0.2 (0.0-0.7) K/uL Baso # (Auto) 0.1 (0.0-0.1) K/uL Nucleated RBC % 0.0 /100WBC Nucleated RBCs # 0 K/uL Lactate (0.20-2.00) mmol/L Sodium (136-145) mmol/L Potassium (3.5-5.1) mmol/L Chloride (98-107) mmol/L Carbon Dioxide (21.0-32.0) mmol/L BUN (7.0-18.0) mg/dL Creatinine (0.6-1.0) mg/dL Est Cr Clr Drug Dosing mL/min Estimated GFR (MDRD) ml/min Glucose (74-106) mg/dL Calcium (8.5-10.1) mg/dL Total Bilirubin (0.2-1.0) mg/dL AST (15-37) IU/L ALT (14-63) IU/L Alkaline Phosphatase (46-116) U/L Total Protein (6.4-8.2) g/dL Albumin (3.4-5.0) g/dL Globulin (2.6-4.0) g/dL Albumin/Globulin Ratio (0.9-1.6) Lipase (73-393) U/L HCG, Qual (NEG) Urine Color RED Urine Appearance CLOUDY Urine pH 6.0 (5.0-8.0) Ur Specific [place] >= 1.030 (1.001-1.035) Urine Protein >=300 H (NEGATIVE) mg/dL Urine Glucose (UA) NEGATIVE (NEGATIVE) mg/dL Urine Ketones NEGATIVE (NEGATIVE) mg/dL Urine Occult Blood LARGE H (NEGATIVE) Urine Nitrite NEGATIVE (NEGATIVE) Urine Bilirubin SMALL H (NEGATIVE) Urine Urobilinogen 1.0 (<2.0) EU/dL Ur Leukocyte Esterase TRACE H (NEGATIVE) Urine RBC TOO NUMEROUS TO CT H (0-2/HPF) Urine WBC 6-8 (0-5/HPF) Ur Epithelial Cells NOT SEEN (NONE-FEW) Urine Bacteria FEW (NEGATIVE) Urine HCG, Qual NEGATIVE (NEGATIVE) 11/01/19 11/01/19 11/01/19 Range/Units 19:19 19:19 19:33 WBC (4.0-11.0) K/uL RBC (4.30-5.90) M/uL Hgb (12.0-16.0) g/dL Hct (36.0-46.0) % MCV (80.0-98.0) fL MCH (27.0-32.0) pg MCHC (31.0-37.0) g/dL RDW Std Deviation (28.0-62.0) fl RDW Coeff of Kyle (11.0-15.0) % Plt Count (150-400) K/uL MPV (7.40-12.00) fL Neut % (Auto) (48.0-80.0) % Lymph % (Auto) (16.0-40.0) % [place] % (Auto) (0.0-15.0) % Eos % (Auto) (0.0-7.0) % Baso % (Auto) (0.0-1.5) % Neut # (Auto) (1.4-5.7) K/uL Lymph # (Auto) (0.6-2.4) K/uL [place] # (Auto) (0.0-0.8) K/uL Eos # (Auto) (0.0-0.7) K/uL Baso # (Auto) (0.0-0.1) K/uL Nucleated RBC % /100WBC Nucleated RBCs # K/uL Lactate 0.7 (0.20-2.00) mmol/L Sodium 140 (136-145) mmol/L Potassium 4.6 (3.5-5.1) mmol/L Chloride 105 (98-107) mmol/L Carbon Dioxide 27.8 (21.0-32.0) mmol/L BUN 15 (7.0-18.0) mg/dL Creatinine 0.9 (0.6-1.0) mg/dL Est Cr Clr Drug Dosing 61.86 mL/min Estimated GFR (MDRD) > 60.0 ml/min Glucose 103 (74-106) mg/dL Calcium 9.6 (8.5-10.1) mg/dL Total Bilirubin 0.3 (0.2-1.0) mg/dL AST 16 (15-37) IU/L ALT 24 (14-63) IU/L Alkaline Phosphatase 79 (46-116) U/L Total Protein 7.0 (6.4-8.2) g/dL Albumin 3.8 (3.4-5.0) g/dL Globulin 3.2 (2.6-4.0) g/dL Albumin/Globulin Ratio 1.2 (0.9-1.6) Lipase 70 L (73-393) U/L HCG, Qual NEGATIVE (NEG) Urine Color Urine Appearance Urine pH (5.0-8.0) Ur Specific [place] (1.001-1.035) Urine Protein (NEGATIVE) mg/dL Urine Glucose (UA) (NEGATIVE) mg/dL Urine Ketones (NEGATIVE) mg/dL Urine Occult Blood (NEGATIVE) Urine Nitrite (NEGATIVE) Urine Bilirubin (NEGATIVE) Urine Urobilinogen (<2.0) EU/dL Ur Leukocyte Esterase (NEGATIVE) Urine RBC (0-2/HPF) Urine WBC (0-5/HPF) Ur Epithelial Cells (NONE-FEW) Urine Bacteria (NEGATIVE) Urine HCG, Qual (NEGATIVE) Departure - Departure Time of Disposition: 20:34 Disposition: Home, Self-Care 01 Clinical Impression: Urinary tract infection Qualifiers: Urinary tract infection type: acute cystitis Hematuria presence: with hematuria Qualified Code(s): N30.01 - Acute cystitis with hematuria Hematuria Qualifiers: Hematuria type: unspecified type Qualified Code(s): R31.9 - Hematuria, unspecified - Discharge Information Prescriptions: Ciprofloxacin [Ciprofloxacin HCl] 500 mg PO BID 7 Days #14 tab Referrals: PCP,None [Primary Care Provider] - Forms: ED Department Discharge Additional Instructions: The following information is given to patients seen in the emergency department who are being discharged to home. This information is to outline your options for follow-up care. We provide all patients seen in our emergency department with a follow-up referral. The need for follow-up, as well as the timing and circumstances, are variable depending upon the specifics of your emergency department visit. If you don't have a primary care physician on staff, we will provide you with a referral. We always advise you to contact your personal physician following an emergency department visit to inform them of the circumstance of the visit and for follow-up with them and/or the need for any referrals to a consulting specialist. The emergency department will also refer you to a specialist when appropriate. This referral assures that you have the opportunity for follow-up care with a specialist. All of these measure are taken in an effort to provide you with optimal care, which includes your follow-up. Under all circumstances we always encourage you to contact your private physician who remains a resource for coordinating your care. When calling for follow-up care, please make the office aware that this follow-up is from your recent emergency room visit. If for any reason you are refused follow-up, please contact the [facility] Emergency Department at and asked to speak to the emergency department charge nurse. [facility] [address] [place] [id number] [id number] 1. Take medication as prescribed. You can alternate ibuprofen and Tylenol as directed for pain and discomfort. 2. Follow-up with Dr. Castellano as discussed. Return to the ED as needed and as discussed. Sepsis Event Note (ED) - Evaluation Sepsis Screening Result: No Definite Risk - Focused Exam Vital Signs: Vital Signs Temp Pulse Resp BP Pulse Ox 11/01/19 18:18 96.4 F L 100 18 104/63 97 - My Orders Last 24 Hours: My Active Orders 11/01/19 17:45 CULTURE URINE [RM] Stat - Assessment/Plan Last 24 Hours: My Active Orders 11/01/19 17:45 CULTURE URINE [RM] Stat
--- NOTE | 2019-11-01 19:47 | CT ---
CT abdomen and pelvis Technique: Multiple axial sections were obtained from above the dome of the diaphragm inferiorly through the pubic symphysis. Intravenous contrast and oral contrast not utilized. Comparison: Prior CT abdomen and pelvis exam of 10/19/19. Left ureteral stent is seen which is an interval change from prior study. Proximal end is located within the renal pelvis and distal end lies within the bladder. Previous obstructing stone is not appreciated with certainty. No bladder calculi are seen. No right-sided ureteral stone is seen. Low-density lesion is noted within the lower right kidney measuring about 2.1 cm compatible with a cyst. Second cyst is identified slightly more superiorly within the mid right kidney measuring 1.3 cm. 2 nonobstructing calculi are noted within the right kidney. 2 nonobstructing calculi are seen within the left kidney. Visualized lung bases are clear. Noncontrast appearance of the liver and spleen appears within normal limits. Adrenal glands show no nodule. Pancreas shows no discrete abnormality. Gallbladder contains no calcified gallstones. Aorta shows atherosclerotic calcification which continues into the iliac vessels. No aneurysm is seen. No retroperitoneal adenopathy or mesenteric abnormalities are seen. No pelvic mass or adenopathy is seen. No free fluid or inflammatory change is seen. Appendix is seen which is normal in size. Impression: 1. Left ureteral stent with proximal end within the renal pelvis and distal end within the bladder. 2. Stone noted within the distal left ureter on prior study not appreciated with certainty on current study. 3. Nonobstructing calculi within both kidneys. 2 cysts within the right kidney. 4. Nothing acute is appreciated on noncontrast CT study of the abdomen and pelvis. Diagnostic code #2 Study was dictated in MDT
[2019-11-01 19:52] LABS: BLOOD UREA NITROGEN,BUN 15 mg/dL (7.0-18.0); CARBON DIOXIDE,CO2 27.8 mmol/L (21.0-32.0); CHLORIDE,CL 105 mmol/L (98-107); GLUCOSE RANDOM 103 mg/dL (74-106); LIPASE 70 U/L (73-393); POTASSIUM,K 4.6 mmol/L (3.5-5.1); SODIUM,NA 140 mmol/L (136-145)
== END 2019-11-01 20:55 | disposition home or self-care (01) ==
LOC: MW.ED 17:36
DX: N30.01 Acute cystitis with hematuria (principal); F17.210 Nicotine dependence, cigarettes, uncomplicated; Z98.890 Other specified postprocedural states
CPT/HCPCS: 36415; 74176; 74176-26; 80053; 81001; 81025; 83605; 83690; 84703; 85025; 87086; 99284; 99284-25

== ENCOUNTER 2019-11-09 18:28 | Emergency (ER) | payer BC, OTHER ==
[2019-11-09] MEDS ORDERED: Sodium Chloride 0.9% 1,000 ML IV ONE (21:16)
[2019-11-09] MEDS ORDERED: Ketorolac 30 MG/ML SDV IVPUSH ONE (21:21)
--- NOTE | 2019-11-09 21:25 | EDM.PDOC ---
<JoriAkbar - Last Filed: 11/09/19 23:48> ED HPI GENERAL MEDICAL PROBLEM - General Chief Complaint: Fever Stated Complaint: FEVER,PAINFUL SKIN Time Seen by Provider: 11/09/19 21:16 - History of Present Illness INITIAL COMMENTS - FREE TEXT/NARRATIVE: Signout received at 10 PM. Patient seen and evaluated by me. Patient reports that yesterday evening she had a sensation that her ' skin was aching' and tactile fevers. Patient presented to the ER today on the advice of her urologist secondary to recent removal of her ureteral stent. Upon arrival to the ED the patient's vital signs have been stable. Patient is afebrile. Patient was slightly tachycardic which resolved with IV fluids. Patient's WBC count is slightly elevated. CT scan of abdomen pelvis: 1. Mild left hydronephrosis with urothelial thickening and adjacent fat stranding without evidence of ureteral stones. This is presumably secondary to recent removal of a left ureteral stent although notes that with a high history of fever the differential diagnosis includes a ureteritis. Air within the bladder lumen presumably secondary to recent instrumentation although the differential diagnosis would include cystitis. Nonobstructing nephrolithiasis. Patient's presentation at this time is not consistent with significant infection. Given the CT report and her concern with fever at home, the patient was given a dose of Rocephin IV here and will be started on p.o. Keflex at home. Patient be instructed to call her urologist in the morning for further evaluation and management of her symptoms. At this time, feel that the patient will be stable for discharge home to be managed on outpatient basis. Patient denies any recent nausea, vomiting, diarrhea, dysuria, frequency, urgency, chest pain, shortness of breath. Patient reports that she does have a slight sore throat and was concerned that she might have coronavirus. Patient's coronavirus test here is negative. Reexamination prior to discharge: Constitutional: Patient is oriented to person, place, and time. Appears well- developed and well-nourished. No distress. HEENT: Moist mucous membranes Head: Normocephalic and atraumatic Eyes: Right eye exhibits no discharge. Left eye exhibits no discharge. No scleral icterus Neck: Normal range of motion. No tracheal deviation present. Neck supple, no nuchal rigidity, no photophobia, no Kernig's sign or Brudzinski sign, patient does not present with signs or symptoms of be consistent with meningitis. Cardiovascular: Normal rate and regular rhythm. Pulmonary: Effort normal, no respiratory distress. Lungs clear without any wheezing rales or rhonchi Abd: Soft, nondistended, no rebound/guarding, no psoas or obturator signs, no tenderness at Mcberney's point, no Taylor's sign. Nontender to palpation. Pt does not present with an exam that would be consistent with an acute surgical abdomen. Musculoskeletal: Normal range of motion Neurologic: Alert and oriented to person, place and time. Skin: [place], warm and dry. Psychiatric: Normal mood and affect. Behavior is normal. Judgment and thought content normal. Nursing note and vital signs have been reviewed Reassessment at the time of disposition demonstrates that the patient is in no acute distress. The patient has remained stable throughout the entire ED visit and is without objective evidence for acute process requiring urgent inte rvention or hospitalization. The patient is stable for discharge, counseling is provided as documented above, discussed symptomatic treatment and specific conditions for return. I have spoken with the patient/caregive and discussed todays findings, in addition to providing specific details for the plan of care. Questions are answered and there is agreement with the plan. - Related Data Allergies Allergy/AdvReac Type Severity Reaction Status Date / Time No Known Allergies Allergy Verified 11/09/19 19:13 Home Meds: Home Meds cephALEXin [Keflex] 500 mg PO Q8H #30 cap 11/09/19 [Rx] Departure - Departure Time of Disposition: 23:53 Disposition: Home, Self-Care 01 Condition: Good Clinical Impression: Fever, Ureteritis - Discharge Information Prescriptions: cephALEXin [Keflex] 500 mg PO Q8H #30 cap Instructions: Fever, Adult, Urinary Tract Infection, Adult, [id number] Referrals: PCP,None [Primary Care Provider] - Forms: ED Department Discharge Additional Instructions: Your ER work-up today did not reveal a clear source to your symptoms. Given your concern and possible fever at home we will empirically start you on a dose of IV Rocephin here in the ED and discharged you on Keflex to cover for possible urinary tract infection given your recent manipulation and removal of your ureteral stent. Please call your urologist in the morning for further reevaluation of your symptoms. The following information is given to patients seen in the emergency department who are being discharged to home. This information is to outline your options for follow-up care. We provide all patients seen in our emergency department w ith a follow-up referral. The need for follow-up, as well as the timing and circumstances, are variable depending upon the specifics of your emergency department visit. If you don't have a primary care physician on staff, we will provide you with a referral. We always advise you to contact your personal physician following an emergency department visit to inform them of the circumstance of the visit and for follow-up with them and/or the need for any referrals to a consulting specialist. The emergency department will also refer you to a specialist when appropriate. This referral assures that you have the opportunity for follow-up care with a specialist. All of these measure are taken in an effort to provide you with optimal care, which includes your follow-up. Under all circumstances we always encourage you to contact your private physician who remains a resource for coordinating your care. When calling for follow-up care, please make the office aware that this follow-up is from your recent emergency room visit. If for any reason you are refused follow-up, please contact the [facility] Emergency Department at and asked to speak to the emergency department charge nurse. <Nubia Munroe - Last Filed: 11/13/19 10:12> ED HPI GENERAL MEDICAL PROBLEM - General Source of Information: Reports: Patient History Limitations: Reports: No Limitations - History of Present Illness INITIAL COMMENTS - FREE TEXT/NARRATIVE: HISTORY AND PHYSICAL: History of present illness: Patient is a 49-year-old female who presents to the ED today with concern of feeling feverish following stent removal of her kidney for kidney stones 2 days ago. Patient states that she was having issues with urinary tract infections and kidney stones and had a stent placed in her kidney. Patient states she had the stent removed 2 days ago and starting late last night began feeling as if she has had a fever. Patient states she did take a dose of Tylenol last night but has not taken any fever reducing medications today. Patient states that she feels warm and is so she has the chills but has not checked a temperature at home. Patient denies any associated of symptoms. Follows with Dr. Castellano, [facility] urologist. Patient denies chest pain, shortness of breath, or cough. Denies headache, neck stiff ness, change in vision, syncope, or near syncope. Denies nausea, vomiting, abdominal pain, diarrhea, constipation, or dysuria. Has not noted any blood in urine or stool. Patient has been eating and drinking appropriately. Review of systems: As per history of present illness and below otherwise all systems reviewed and negative. Past medical history: As per history of present illness and as reviewed below otherwise noncontributory. Surgical history: As per history of present illness and as reviewed below otherwise noncontributory. Social history: See social history for further information Family history: As per history of present illness and as reviewed below otherwise noncontributory. Physical exam: General: Patient is alert, oriented, and in no acute distress. Patient laying comfortably on exam table, tired appearing. HEENT: Atraumatic, normocephalic, pupils equal and reactive bilaterally, negative for conjunctival pallor or scleral icterus, mucous membranes moist, TMs normal bilaterally, throat clear, neck supple, nontender, trachea midline. No drooling or trismus noted. No meningeal signs. No hot potato voice noted. Lungs: Patient speaking clearly without breathlessness, no wheezing or stridor, no accessory muscle use or respiratory distress. Auscultation deferred due to current COV-ID 19 outbreak. Heart: Auscultation deferred due to current COV-ID 19 outbreak. Abdomen: Soft, nondistended, nontender. Negative for masses or hepatosplenomegaly. Negative for costovertebral tenderness. Pelvis: Stable nontender. Genitourinary: Deferred. Rectal: Deferred. Skin: Intact, warm, dry. No lesions or rashes noted. Extremities: Atraumatic, negative for cords or calf pain. Neurovascular unremarkable. Neuro: Awake, alert, oriented. Cranial nerves II through XII unremarkable. Cerebellum unremarkable. Motor and sensory unremarkable throughout. Exam nonf ocal. Notes: Dr. Hsieh has assumed care of patient and will follow remaining diagnostics and disposition for patient. Diagnostics: CBC, CMP, UA, Uhcg, EKG, Trop, CXR Therapeutics: NS, Toradol, Rocephin Prescription: Impression: Post op fever Plan: Definitive disposition and diagnosis as appropriate pending reevaluation and review of above. 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 ED EXAM, GENERAL - Physical Exam Exam: See Below (see dictation) Course - Vital Signs Last Recorded V/S: Last Vital Signs Temp 99 F 11/09/19 19:09 Pulse 87 11/10/19 00:15 Resp 16 11/10/19 00:15 BP 117/70 11/10/19 00:15 Pulse Ox 97 11/10/19 00:15 - Orders/Labs/Meds Labs: Laboratory Tests 11/09/19 11/09/19 11/09/19 Range/Units 19:16 19:16 21:45 WBC 15.30 H (4.0-11.0) K/uL RBC 4.31 (4.30-5.90) M/uL Hgb 12.4 (12.0-16.0) g/dL Hct 38.2 (36.0-46.0) % MCV 88.6 (80.0-98.0) fL MCH 28.8 (27.0-32.0) pg MCHC 32.5 (31.0-37.0) g/dL RDW Std Deviation 43.8 (28.0-62.0) fl RDW Coeff of Kyle 13 (11.0-15.0) % Plt Count 226 (150-400) K/uL MPV 10.50 (7.40-12.00) fL Neut % (Auto) 68.7 (48.0-80.0) % Lymph % (Auto) 16.3 (16.0-40.0) % [place] % (Auto) 13.7 (0.0-15.0) % Eos % (Auto) 1.0 (0.0-7.0) % Baso % (Auto) 0.3 (0.0-1.5) % Neut # (Auto) 10.5 H (1.4-5.7) K/uL Lymph # (Auto) 2.5 H (0.6-2.4) K/uL [place] # (Auto) 2.1 H (0.0-0.8) K/uL Eos # (Auto) 0.2 (0.0-0.7) K/uL Baso # (Auto) 0.0 (0.0-0.1) K/uL Nucleated RBC % 0.0 /100WBC Nucleated RBCs # 0 K/uL Lactate (0.20-2.00) mmol/L Sodium (136-145) mmol/L Potassium (3.5-5.1) mmol/L Chloride (98-107) mmol/L Carbon Dioxide (21.0-32.0) mmol/L BUN (7.0-18.0) mg/dL Creatinine (0.6-1.0) mg/dL Est Cr Clr Drug Dosing mL/min Estimated GFR (MDRD) ml/min Glucose (74-106) mg/dL Calcium (8.5-10.1) mg/dL Total Bilirubin (0.2-1.0) mg/dL AST (15-37) IU/L ALT (14-63) IU/L Alkaline Phosphatase (46-116) U/L Troponin I (0.000-0.056) ng/mL Total Protein (6.4-8.2) g/dL Albumin (3.4-5.0) g/dL Globulin (2.6-4.0) g/dL Albumin/Globulin Ratio (0.9-1.6) Lipase (73-393) U/L Urine Color YELLOW Urine Appearance CLEAR Urine pH 6.0 (5.0-8.0) Ur Specific [place] 1.020 (1.001-1.035) Urine Protein NEGATIVE (NEGATIVE) mg/dL Urine Glucose (UA) NEGATIVE (NEGATIVE) mg/dL Urine Ketones NEGATIVE (NEGATIVE) mg/dL Urine Occult Blood MODERATE H (NEGATIVE) Urine Nitrite NEGATIVE (NEGATIVE) Urine Bilirubin NEGATIVE (NEGATIVE) Urine Urobilinogen 0.2 (<2.0) EU/dL Ur Leukocyte Esterase NEGATIVE (NEGATIVE) Urine RBC 20-25 (0-2/HPF) Urine WBC 1-3 (0-5/HPF) Ur Epithelial Cells FEW (NONE-FEW) Urine Bacteria FEW (NEGATIVE) Urine HCG, Qual NEGATIVE (NEGATIVE) COVID-19 (TRACI) (NEGATIVE) 11/09/19 11/09/19 11/09/19 Range/Units 21:45 22:30 22:40 WBC (4.0-11.0) K/uL RBC (4.30-5.90) M/uL Hgb (12.0-16.0) g/dL Hct (36.0-46.0) % MCV (80.0-98.0) fL MCH (27.0-32.0) pg MCHC (31.0-37.0) g/dL RDW Std Deviation (28.0-62.0) fl RDW Coeff of Kyle (11.0-15.0) % Plt Count (150-400) K/uL MPV (7.40-12.00) fL Neut % (Auto) (48.0-80.0) % Lymph % (Auto) (16.0-40.0) % [place] % (Auto) (0.0-15.0) % Eos % (Auto) (0.0-7.0) % Baso % (Auto) (0.0-1.5) % Neut # (Auto) (1.4-5.7) K/uL Lymph # (Auto) (0.6-2.4) K/uL [place] # (Auto) (0.0-0.8) K/uL Eos # (Auto) (0.0-0.7) K/uL Baso # (Auto) (0.0-0.1) K/uL Nucleated RBC % /100WBC Nucleated RBCs # K/uL Lactate 0.8 (0.20-2.00) mmol/L Sodium 137 (136-145) mmol/L Potassium 3.6 (3.5-5.1) mmol/L Chloride 100 (98-107) mmol/L Carbon Dioxide 28.0 (21.0-32.0) mmol/L BUN 9 (7.0-18.0) mg/dL Creatinine 0.6 (0.6-1.0) mg/dL Est Cr Clr Drug Dosing 92.79 mL/min Estimated GFR (MDRD) > 60.0 ml/min Glucose 91 (74-106) mg/dL Calcium 8.0 L (8.5-10.1) mg/dL Total Bilirubin 0.3 (0.2-1.0) mg/dL AST 14 L (15-37) IU/L ALT 22 (14-63) IU/L Alkaline Phosphatase 85 (46-116) U/L Troponin I < 0.050 (0.000-0.056) ng/mL Total Protein 6.9 (6.4-8.2) g/dL Albumin 3.3 L (3.4-5.0) g/dL Globulin 3.6 (2.6-4.0) g/dL Albumin/Globulin Ratio 0.9 (0.9-1.6) Lipase 85 (73-393) U/L Urine Color Urine Appearance Urine pH (5.0-8.0) Ur Specific [place] (1.001-1.035) Urine Protein (NEGATIVE) mg/dL Urine Glucose (UA) (NEGATIVE) mg/dL Urine Ketones (NEGATIVE) mg/dL Urine Occult Blood (NEGATIVE) Urine Nitrite (NEGATIVE) Urine Bilirubin (NEGATIVE) Urine Urobilinogen (<2.0) EU/dL Ur Leukocyte Esterase (NEGATIVE) Urine RBC (0-2/HPF) Urine WBC (0-5/HPF) Ur Epithelial Cells (NONE-FEW) Urine Bacteria (NEGATIVE) Urine HCG, Qual (NEGATIVE) COVID-19 (TRACI) NEGATIVE (NEGATIVE) Meds: Medications Discontinued Medications Generic Name Dose Route Start Last Admin Trade Name Aris PRN Reason Stop Dose Admin Sodium Chloride 1,000 mls @ 999 mls/hr 11/09/19 21:16 11/09/19 21:50 Normal Saline IV 11/09/19 22:16 999 mls/hr STAT ONE Administration Ceftriaxone Sodium/Dextrose 1 50 mls @ 100 mls/hr 11/09/19 22:11 11/09/19 23:21 gm/ Premix IV 11/09/19 22:40 100 mls/hr ONETIME ONE Administration Iopamidol 100 ml 11/09/19 22:35 11/09/19 22:35 Isovue-370 (76%) IVPUSH 11/09/19 22:36 100 ml ONETIME ONE Administration Ketorolac Tromethamine 30 mg 11/09/19 21:21 11/09/19 21:50 Toradol IVPUSH 11/09/19 21:22 30 mg ONETIME ONE Administration Sepsis Event Note (ED) - Evaluation Sepsis Screening Result: No Definite Risk
--- NOTE | 2019-11-09 21:45 | CR ---
Chest: 2 views of the chest were obtained. Comparison: No prior chest x-rays available. Heart size and mediastinum are normal. Lungs are clear with no acute parenchymal change. Bony structures appear unremarkable. Impression: 1. Nothing acute is seen on 2 view chest x-ray. Diagnostic code #1 This report was dictated in MDT
[2019-11-09] MEDS ORDERED: cefTRIAXone 1 GM in Premix Bag 1 BAG IV ONE (22:11)
[2019-11-09 22:22] LABS: BLOOD UREA NITROGEN,BUN 9 mg/dL (7.0-18.0); CHLORIDE,CL 100 mmol/L (98-107); GLUCOSE RANDOM 91 mg/dL (74-106); LIPASE 85 U/L (73-393); POTASSIUM,K 3.6 mmol/L (3.5-5.1); SODIUM,NA 137 mmol/L (136-145)
[2019-11-09] MEDS ORDERED: Iopamidol 755 Mg/ML 100 ML Bottle IVPUSH ONE (22:35)
--- NOTE | 2019-11-09 23:15 | CT ---
INDICATION: Postoperative fever, renal stent TECHNIQUE: Axial images were obtained from the diaphragm to the pubic symphysis. Reformats were obtained in the coronal and sagittal plane. IV Contrast: 100 cc Isovue 370 Oral Contrast: None COMPARISON: Abdomen and pelvis CT 11/01/2019 FINDINGS: Lower chest: Unremarkable. Liver: Unremarkable. Normal in size and attenuation. No masses. Gallbladder and bile ducts: Unremarkable. No stones or inflammation. No biliary dilatation. Spleen: Unremarkable. Normal in size without mass. Pancreas: Unremarkable. No mass or inflammation. Adrenal glands: Unremarkable. No nodules. Kidneys: Bilateral renal hypodense lesions, likely cysts with nephrolithiasis. Mild left hydronephrosis with mild periureteral fat stranding and urothelial thickening. No definite ureteral stone. Vasculature: Atherosclerosis without abdominal aortic aneurysm. GI tract: The stomach is unremarkable. No dilated loops of large or small intestine. Appendix unremarkable. Pelvis: Small air within the bladder. Left ovarian cyst measuring 3.3 centimeters. Bones: Unremarkable for age. IMPRESSION: 1. Mild left hydronephrosis with urothelial thickening and adjacent fat stranding without evidence of ureteral stone. This is presumably secondary to recent removal of a left ureteral stent although note that with the history of fever, the differential diagnosis would include a ureteritis. 2. Air within the bladder lumen. This also is presumably secondary to recent instrumentation although the differential diagnosis would include cystitis. 3. Nonobstructing nephrolithiasis. 4. Left ovarian cyst measuring 3.3 centimeters. Please note that all CT scans at this facility use dose modulation, iterative reconstruction, and/or weight-based dosing when appropriate to reduce radiation dose to as low as reasonably achievable. Dictated by Willie Lanier MD @ Nov 09 2019 10:51PM Signed by Dr. Willie Lanier @ Nov 09 2019 11:13PM
== END 2019-11-10 00:16 | disposition home or self-care (01) ==
LOC: MW.ED 18:28
DX: N34.2 Other urethritis (principal); F17.210 Nicotine dependence, cigarettes, uncomplicated; Z20.828 Contact with and (suspected) exposure to other viral communicable diseases
CPT/HCPCS: 36415; 71046; 74177; 80053; 81001; 81025; 83605; 83690; 84484; 85025; 87040; 87635; 93005; 96361; 96365; 96375; 99284; J0696; J1885; J7030; Q9967; U0002

== ENCOUNTER 2021-08-02 12:28 | Emergency (ER) | payer OTHER ==
[2021-08-02] MEDS ORDERED: Bacitracin Oint 1 GM U/D Packet TOP ONE (12:41)
[2021-08-02] MEDS ORDERED: Acetaminophen/HYDROcodone 325-5 MG Tab PO ONE (12:41)
[2021-08-02] MEDS ORDERED: Ondansetron 4 MG Tab.DIS PO ONE (12:41)
== END 2021-08-02 16:13 | disposition home or self-care (01) ==
LOC: MW.ED 12:28
DX: S97.02XA Crushing injury of left ankle, initial encounter (principal); W18.30XA Fall on same level, unspecified, initial encounter; Y99.0 Civilian activity done for income or pay
CPT/HCPCS: 73610; 73620; 99283; A9270

== ENCOUNTER 2021-09-04 06:51 | Emergency (ER) | payer SELFPAY ==
[2021-09-04] MEDS ORDERED: Ketorolac 30 MG/ML SDV IVPUSH ONE (07:13)
[2021-09-04] MEDS ORDERED: Ondansetron 4 MG/2 ML SDV IVPUSH ONE (07:13)
[2021-09-04] MEDS ORDERED: Morphine 4 MG/ML VIAL IVPUSH ONE (07:13)
[2021-09-04 08:01] LABS: CARBON DIOXIDE,CO2 25.7 mmol/L (21.0-32.0)
[2021-09-04 08:19] LABS: POTASSIUM,K 4.1 mmol/L (3.5-5.1)
== END 2021-09-04 09:18 | disposition home or self-care (01) ==
LOC: MW.ED 06:51
DX: N23 Unspecified renal colic (principal)
CPT/HCPCS: 36415; 74176; 80053; 81001; 85025; 96374; 96375; 99284; J1885; J2270; J2405

== ENCOUNTER 2021-09-04 17:02 | Emergency (ER) | payer SELFPAY ==
[2021-09-04] MEDS ORDERED: Ondansetron 4 MG Tab.DIS PO ONE (20:47)
[2021-09-04] MEDS ORDERED: Tamsulosin 0.4 MG Cap.ER PO ONE (20:48)
[2021-09-04] MEDS ORDERED: Ketorolac 30 MG/ML SDV IM ONE (20:48)
[2021-09-04] MEDS ORDERED: HYDROmorphone 1 MG/ML Syringe IM ONE (20:48)
== END 2021-09-04 21:07 | disposition home or self-care (01) ==
LOC: MW.ED 17:02
DX: N13.2 Hydronephrosis with renal and ureteral calculous obstruction (principal); Z79.899 Other long term (current) drug therapy
CPT/HCPCS: 96372; 96374; 99283; A9270; J1170; J1885